=== PATIENT | female | born 1960 | race Caucasian/White ===

== ENCOUNTER 2022-10-18 03:16 | Observation (INO) | payer BC ==
[~2022-10-18] VITALS: Ht 167.6 cm; Wt 62.9 kg
[~2022-10-18 03:16] MED LIST: AUGMENTIN 875-1 EACH PO
[2022-10-18 03:42] LABS: BILIRUBIN, URINE NEGATIVE (negative); BLOOD/HGB, URINE TRACE-I (Negative); KETONE, URINE NEGATIVE (Negative); LEUK ESTERASE, URINE NEGATIVE (negative); NITRITE, URINE NEGATIVE (negative); PH, URINE 8.5 (5-7)
[2022-10-18 03:44] LABS: CRYSTALS, URINE AMORPHOUS PHOSPH 2+ (0-1+); EPITHELIAL CELLS, URINE SQUAMOUS 1+ /lpf (0-1+); REFLEX CULTURE, URINE No (No); WHITE BLOOD CELLS, URINE 0-1 /HPF (0-5)
[2022-10-18 03:57] LABS: BASOPHILS 0.4 % (0-2); HEMATOCRIT 35.8 % (35.0-50.0); HEMOGLOBIN 12.2 g/dL (12.0-18.0); LYMPHOCYTES 17.8 % (24-44); MCH 31.8 (27-36); MCV 93.4 fl (81-99); MONOCYTES 6.9 % (0-12); NEUTROPHILS 72.9 % (39-80); PLATELET COUNT 277 K/uL (140-440); RBC 3.83 M/ul (4.3-5.7); RDW 13.3 (10.5-15.0)
[2022-10-18 04:10] LABS: ALBUMIN 3.8 g/dL (3.4-5.0); ALBUMIN/GLOBULIN RATIO 0.93 (1.1-2.4); ANION GAP 13.7 (7-21); BILIRUBIN, TOTAL 0.6 ng/dL (0.2-1.0); BUN/CREATININE RATIO 13.43 (6.0-28.6); CALCIUM 9.6 mg/dL (8.5-10.1); CREATININE, SERUM 0.67 mg/dL (0.55-1.02); POTASSIUM 3.7 mmol/L (3.5-5.1); PROTEIN, TOTAL 7.9 g/dL (6.4-8.2)
[2022-10-18 06:34] LABS: INFLUENZA B NAA NEGATIVE (NEGATIVE); RESPIRATORY SYNCYTIAL VIR NAA NEGATIVE (NEGATIVE)
[2022-10-18 07:52] VITALS: BP 146/80
--- NOTE | 2022-10-18 08:05 | NUR ---
PATIENT TO MEDICAL FLOOR. PT IS ALERT AND ORIENTED X4. PATIENT REPORTS 5/10 ABDOMINAL PAIN WITH NAUSEA. PATIENT REPORTS HER PAIN AND NAUSEA ARE GETTING A BIT BETTER SINCE MEDICATION WAS ADMINISTERED. PATIENT ORIENTED TO ROOM AND CALL LIGHT.
--- NOTE | 2022-10-18 09:14 | NUR ---
SPOKE TO PT. ABOUT THE DISCHARGE PLAN.PATIENT WILL GO HOME TO HER [place]IL[place] WHERE SHE LIVES ALONE. PATIENT HAS A DAUGHTER THAT CHECKS ON HER FREQUENTLY. THE PATIENT CAN DO HER OWN ADLS AND IS ABLE TO DRIVE NEEDED. PATIENT DOES NOT USE DME. PATIENT IS ABLE TO CLIMB THE THE STEPS TO HER TRAILER WITHOUT DIFFICULTY.PATIENT CAN AFFORD FOOD AND HOUSING. PATIENT DOES NOT NEED PLACEMENT. PATIENT HAS FRIENDS AND FAMILY THAT CAN HELP NEEDED. PATIENT DOES NOT NEED CASE MANAGEMENT'S HELP AT THIS TIME. THE PATIENT'S DEMOGRAHICS ARE CORRECT IN THE MEDICAL RECORD.
--- NOTE | 2022-10-18 10:52 | NUR ---
RESPONDED TO CALL LIGHT AT ABOUT 1020 HOURS. PT IV ALARMING LOW BATTERY. IV PUMP PLUGGED BACK IN, SCD'S PLACED BILATERALLY AND TURNED ON. WARM BLANKET PROVIDED. BED REPOSITIONED AND BRAKES SET. CALL LIGHT IN REACH, DENIES OTHER NEEDS AT THIS TIME.
--- NOTE | 2022-10-18 11:41 | NUR ---
PT IN [facility]. TALKED OF [facility] AND HEALTH JOURNEY. CONSENTED TO PRAYER. PRAYED FOR SUCCESSFUL PROCEDURE AND GEORGE AND COMPLETE RECOVERY.
--- NOTE | 2022-10-18 11:50 | NUR ---
PT VISITORS ARRIVED, ESCORTED VISITORS TO PT'S ROOM. MECHANICAL SYSTEMS DESIGNER IN ROOM WITH PT. PT ADVISED SHE NEEDS TO URINATE. LINE AND TUBE MANAGEMENT, 1-PERSON SBA PT AMBULATED TO BATHROOM TO VOID. EMPTIED URINE COLLECTION HAT OF 800ML CLEAR YELLOW URINE PRIOR TO PT VOIDING, THEN EMPTIED IT OF ANOTHER 600ML CLEAR YELLOW URINE AFTER (BOTH WRITTEN ON DRY ERASE SHEET). PT AMBULATED BACK TO BED, IV PUMP PLUGGED IN, FAMILY IN ROOM, BEDSIDE TABLE NEARBY, CALL LIGHT IN REACH, SCD'S APPLIED AND TURNED ON. DENIES FURTHER NEEDS AT THIS TIME.
[2022-10-18 14:02] VITALS: BP 134/70
--- NOTE | 2022-10-18 15:19 | NUR ---
PATIENT LEFT THE MEDICAL FLOOR FOR SURGERY.
--- NOTE | 2022-10-18 17:08 | NUR ---
10/18/22 1708 Debbie Jiang 1647- PT ARRIVES TO PACU UNIT VIA STRETCHER FROM OR. PT IS NONAROUSABLE TO TACTILE STIMULI AT THIS TIME. ORAL AIRWAY IN PLACE W/10L OF O2 VIA MASK BEING DELIVERED. O2 >90% AT THIS TIME, RESPIRATIONS EVEN AND UNLABORED, NO SIGNS OF DISTRESS. JAW THRUST BEING HELD BY TY NÚÑEZ AT THIS TIME. SURGICAL SITES VISUALIZED. 1649- JAW THRUST NO LONGER NEEDED AT THIS TIME, HEAD REPOSITIONED. RESPIRATIONS EVEN AND UNLABORED, NO SIGNS OF DISTRESS. 1653- PT RESPONSIVE TO VERBAL STIMULI AT THIS TIME. ORAL AIRWAY REMOVED BY PT OPENING MOUTH AT THIS TIME. PT TITRATED TO 6L OF O2 VIA MASK, O2 REMAINS >90% AT THIS TIME. RESPIRATIONS EVEN AND UNLABORED, NO SIGNS OF DISTRESS. 1659- ROOM AIR TRIAL AT THIS TIME, PT TAKING DEEP BREATHS WITHOUT DIFFICULTIES. O2 >90% VIA CONT PULSE OX AT THIS TIME. 1703- LINCOLN ROACH AT BEDSIDE TO DISCUSS PROCEDURE W/PT. 1707- PT DROWSY AND DENIES NEED FOR DRINK OF WATER AT THIS TIME. PT EYES OCCASIONALLY OPENED AND RESPONDS TO VERBAL STIMULI AT THIS TIME. PT DENIES ANY PAIN OR NAUSEA. RESPIRATIONS EVEN AND UNLABORED, NO SIGNS OF DISTRESS.
--- NOTE | 2022-10-18 17:35 | NUR ---
Patient arrived back to the medical floor. Patient is awake, alert and oriented x4. Patient reports her pain is tolerable, 1/10 to abdomen. Patient denies nausea. Abdoment has x4 lap sites noted, steri strips in place-scant sarosang drainage noted. Patient's vital signs are stable, afebrile. Cont cpox in place, sp02 92% on room air, respirations even and non labored. IV site remain patent, fluids infusing per provider order. Patient denies needs. Bed alarm intact.
[2022-10-18 18:23] VITALS: BP 134/92
--- NOTE | 2022-10-18 18:35 | NUR ---
ZOFRAN 4MG IV ADMIN FOR REPORTS OF NAUSEA.
--- NOTE | 2022-10-18 18:55 | NUR ---
ADMIN MORPHINE 2MG IV FOR REPORTS OF 7/10 ABDOMINAL PAIN.
[2022-10-18 19:11] VITALS: BP 135/81
--- NOTE | 2022-10-18 19:42 | NUR ---
REPORT RECEIVED FROM DAY SHIFT RN. PT LYING IN BED ALERT AND ORIENTED. DENIES NEEDS. POST OP VS WNL. PT DENIES NEEDS. WHITE BOARD UPDATED. CALL LIGHT IN REACH.
[2022-10-18 20:25] VITALS: BP 136/62
--- NOTE | 2022-10-18 20:51 | NUR ---
POST OP VS WNL. EVENING ASSESSMENT COMPLETE. SCHEDULED MEDS ADMIN PER EMAR. PT DENIES PAIN OR NAUSEA. LAP SITES X [address] SCANT AMOUNT SEROSANG DRAINAGE NOTED. ABD SOFT. BOWEL TONES ACTIVE. PT REPORTS FLATUS. SCD'S IN PLACE. PT DENIES QUESTIONS OR CONCERNS. CALL LIGHT IN REACH.
--- NOTE | 2022-10-18 22:53 | NUR ---
IV ABX COMPLETE. PT UP TO BR WITH MINIMAL SBA TO VOID. GAIT STEADY. BACK TO BED, VIOLETA WELL. SCD'S IN PLACE. PRN FOR 3/10 ABD PAIN ADMIN WITH CRACKERS AND APPLE SAUCE. PT DENIES NAUSEA. NO FURTHER NEEDS. BED ALARM FOR SAFETY.
[2022-10-19 01:47] VITALS: BP 133/65
--- NOTE | 2022-10-19 02:12 | NUR ---
VS AND I&O OBTAINED. PT UP TO BR WITH MINIMAL ASSIST TO VOID. BACK TO BED, VIOLETA WELL. PT DENIES PAIN OR NAUSEA. LAP SITES X [address]. SCANT AMOUNT SEROSANG DRAINAGE. BOWEL TONES ACTIVE. PT REPORTS FLATUS. ABD SOFT. SCD'S IN PLACE. NO FURTHER NEEDS.
--- NOTE | 2022-10-19 04:01 | NUR ---
PT RESTING IN BED WITH EYES CLOSED. RESPIRATIONS EVEN. SpO2 95% ON RA. HR 60'S. CALL LIGHT IN REACH.
[2022-10-19 05:29] LABS: BASOPHILS 0.7 % (0-2); HEMATOCRIT 31.5 % (35.0-50.0); HEMOGLOBIN 10.5 g/dL (12.0-18.0); LYMPHOCYTES 10.4 % (24-44); MCH 31.7 (27-36); MCHC 33.5 g/dl (30-36); MCV 94.6 fl (81-99); MONOCYTES 6.7 % (0-12); NEUTROPHILS 82.2 % (39-80); PLATELET COUNT 224 K/uL (140-440); RBC 3.33 M/ul (4.3-5.7); RDW 13.5 (10.5-15.0)
[2022-10-19 05:39] VITALS: BP 114/59
--- NOTE | 2022-10-19 05:44 | NUR ---
PT RESTING IN BED. PT UP TO THE BATHROOM WITH A STEADY GAIT. TOLERATED WELL. VITAL SIGNS AND I's and O's TAKEN AND DOCUMENTED. PTS PAIN WAS RATED A 2/10 AND PAIN MEDICATION WAS GIVEN. PT STATES SHE IS READY FOR BREAKFAST. CALL LIGHT WITHIN REACH.
[2022-10-19 05:53] LABS: ALBUMIN/GLOBULIN RATIO 0.86 (1.1-2.4); ANION GAP 10.9 (7-21); BILIRUBIN, TOTAL 0.5 ng/dL (0.2-1.0); BUN/CREATININE RATIO 9.89 (6.0-28.6); CALCIUM 8.3 mg/dL (8.5-10.1); CREATININE, SERUM 0.91 mg/dL (0.55-1.02); MAGNESIUM 1.6 mg/dL (1.8-2.4); POTASSIUM 3.9 mmol/L (3.5-5.1); PROTEIN, TOTAL 6.5 g/dL (6.4-8.2)
--- NOTE | 2022-10-19 07:39 | NUR ---
RECIEVED SHIFT REPORT. PT RESTING IN BED AWAKE. CALL LIGHT IN REACH. DENIES FURTHER NEEDS AT TIME.
[2022-10-19] MEDS ORDERED: ACETAMINOPHEN500 MG PO (09:42)
[2022-10-19] MEDS ORDERED: OXYCODON-ACETA1 EAC2 PO (09:42)
[2022-10-19] MEDS ORDERED: IBUPROFEN600 MG PO (09:42)
[2022-10-19 10:15] VITALS: BP 133/63
--- NOTE | 2022-10-19 10:16 | NUR ---
IV TAKEN OUT UPON RN REQUEST. CATH INTACT AND LOOKED GOOD, RN NOTIFIED.
--- NOTE | 2022-10-19 11:12 | NUR ---
DISCHARGE INSTRUCTIONS DISCUSSED WITH PT AND DAUGHTER, WRITTEN INSTRUCTIONS PROVIDED. BOTH VERBALIZE UNDERSTANDING. PT LEAVES UNIT ABMULATORY WITH DAUGHTER.
--- NOTE | 2022-10-20 12:00 | HP ---
[facility] [address], [place] [address] Signed ADMISSION DATE: 10/18/2022 REASON FOR ADMISSION: Acute calculous cholecystitis. HISTORY OF PRESENT ILLNESS: This 61-year-old white woman is admitted to the hospital with acute calculous cholecystitis. She has been having upper abdominal pain for at least two years she tells me. She usually manages this with dietary manipulation, avoiding fatty food and so on. Last night about midnight, she had severe epigastric and right subcostal pain severe enough that she presented to the emergency room where she was evaluated by Dr. Boswell. Findings included marked tenderness in the right upper abdomen. Imaging study initially performed was a CT scan which showed a dilated gallbladder and some intrahepatic ductal dilatation of biliary tree. She had normal biliary function tests including a normal alkaline phosphatase of 74. Her white count was normal at 9.0. Other labs were normal as well. I was called about the situation and recommended a gallbladder ultrasound be performed to affirm that there were stones and not neoplastic process accounting for her symptoms. A gallbladder ultrasound did confirm at least one large gallstone and probably others. Thickening of the gallbladder was noted. Heller sign was positive. On the basis of these findings, she was admitted for acute calculous cholecystitis. PAST MEDICAL HISTORY: Notable for x3. She has no other medical problems and takes no medications at home. SOCIAL HISTORY: She lives alone with her four pets. She has three grown children who live elsewhere. 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 REVIEW OF SYSTEMS: She denies any shortness of breath or chest pain. Has had no dysphagia, dysuria, hematemesis or blood per rectum. PHYSICAL EXAMINATION: GENERAL: Pleasant white woman who looks to be in no severe distress and without systemic toxicity. She is 5 feet 6 inches tall, 62.9 kg with a BMI of 22.4. HEENT: Trachea is midline. Mucous membranes are slightly dry. Electronically Signed By: HELEN STARK MD 10/20/22 1200 PATIENT NAME: DIANE NOVAK HISTORY AND PHYSICAL DATE OF : 60 REPORT #: [id number] PHYSICIAN: HELEN STARK MD PCP: RUSSELL PINEDA MD REPORT IS CONFIDENTIAL AND NOT TO BE RELEASED WITHOUT AUTHORIZATION [facility] [address], [place] [address] Signed CHEST: Shows normal respiratory excursion. HEART: Pulses regular. ABDOMEN: Nondistended. She has marked tenderness in the epigastric and right subcostal area. There is no ascites. There is no palpable mass. EXTREMITIES: Show no clubbing, cyanosis, or edema. LABORATORY STUDIES: Show a white count of 8.0, hematocrit 35.8, platelets 277,000. Chem profile is essentially normal. Glucose 122, globulin 4.1, lipase 142. Urinalysis is negative. Serology shows no evidence of COVID disease or other viral infection. I have reviewed the imaging of her CT scan and her ultrasound. She clearly has a distended gallbladder and there does appear to be some intrahepatic ductal dilatation. There is no sign of neoplasm of the head of the pancreas. ASSESSMENT: The patient has acute calculous cholecystitis. She has been building these symptoms for quite some time overall. I discussed with her the pathophysiology of this problem writing and illustrating this on her white board in her room. I would recommend continued fluid resuscitation, IV antibiotic therapy, parental pain medication, and plan for cholecystectomy later today. Cholangiogram would be performed as well. If there is stone debris within the bile duct accounting for ductal dilatation in a transcystic duct. Laparoscopic common duct exploration would be considered as well. If this is not possible and there is obstructing stone material, consideration for open cholecystectomy and common duct exploration would also be made. She understands this clearly. MD LUZ Pedraza/IOANA /[id number] cc: Dr. Boswell [facility], ER Electronically Signed By: HELEN STARK MD 10/20/22 1200 PATIENT NAME: DIANE NOVAK HISTORY AND PHYSICAL DATE OF : 60 REPORT #: [id number] PHYSICIAN: HELEN STARK MD PCP: RUSSELL PINEDA MD REPORT IS CONFIDENTIAL AND NOT TO BE RELEASED WITHOUT AUTHORIZATION [facility] [address], [place] [address] Signed Copies: ~ Electronically Signed By: HELEN STARK MD 10/20/22 1200 PATIENT NAME: DIANE NOVAK ANN HISTORY AND PHYSICAL DATE OF : 60 REPORT #: [id number] PHYSICIAN: HELEN STARK MD PCP: RUSSELL PINEDA MD REPORT IS CONFIDENTIAL AND NOT TO BE RELEASED WITHOUT AUTHORIZATION
--- NOTE | 2022-10-21 12:35 | PATH ---
[facility] [address], [place] [address] Signed SPECIMEN(S): A GALLBLADDER WITH STONES SPECIMEN SOURCE: A. GALLBLADDER WITH STONES CLINICAL HISTORY: Acute cholecystitis. Cholelithiasis. FINAL PATHOLOGIC DIAGNOSIS: Gallbladder with stones: - Chronic calculus cholecystitis. JVR:marlene MICROSCOPIC EXAMINATION: Histologic sections of all submitted blocks are examined by light microscopy. These findings, together with the gross examination, support the pathologic diagnosis. GROSS DESCRIPTION: The specimen, labeled and designated "Jillian Donovan " and designated on the requisition "gallbladder with stone," is received in formalin and consists of Specimen: Previously opened gallbladder. Dimensions: 7.5 x 5.7 x 2.0 cm. Serosa: Yellow-guardado and smooth. Cystic Duct: Unobstructed, margin inked black and shaved. Calculi: White-guardado bosselated and irregularly shaped calculi (2.0 x 1.8 x 1.8 cm and 2.4 x 2.0 x 2.0 cm).. Mucosa: Green and velvety. Wall thickness: 0.4 cm. Lymph node: No pericystic lymph nodes are grossly identified. Additional: None. Assistant Merchandiser sections are submitted in (A1). AC (under the direct supervision of a pathologist) The Gross Description was prepared using a voice recognition system. The report was reviewed for accuracy; however, sound-alike word errors, addition and/or deletions may occur. If there is any question about this report, please contact Client Services. PERFORMING LABORATORY: Technical component was performed by [facility], [address] [place] [id number] (CLIA# [id number]). Professional interpretation was PATIENT NAME: DIANE DONOVAN PATHOLOGY DATE OF : 60 REPORT #: [id number] PHYSICIAN: CANDI PATHOLOGY PCP: RUSSELL PINEDA MD REPORT IS CONFIDENTIAL AND NOT TO BE RELEASED WITHOUT AUTHORIZATION [facility] [address], [place] [address] Signed performed by [facility] [address] [address] (CLIA#: [id number]). Diagnostician: Phillip Mireles MD Pathologist Electronically Signed 10/21/2022 Copies: ~ PATIENT NAME: DIANE DONOVAN PATHOLOGY DATE OF : 60 REPORT #: [id number] PHYSICIAN: CANDI PATHOLOGY PCP: RUSSELL PINEDA MD REPORT IS CONFIDENTIAL AND NOT TO BE RELEASED WITHOUT AUTHORIZATION
--- NOTE | 2022-10-30 11:13 | OR ---
[facility] [address] [place], [place] [address] Signed DATE OF OPERATION: 10/18/2022 SURGEON: Helen Stark MD PREOPERATIVE DIAGNOSES: 1. Acute calculous cholecystitis. 2. Dilated common bile duct. POSTOPERATIVE DIAGNOSES: 1. Acute calculous cholecystitis. 2. Dilated common bile duct. 3. No associated obstruction of duct or stone and duct. PROCEDURE: Laparoscopic cholecystectomy with intraoperative cholangiogram and surgeon-directed fluoroscopy. ANESTHESIA: General endotracheal, Helen Shine CRNA and local 10 mL of 0.25% Marcaine with epinephrine. INDICATION: This 61-year-old white woman was admitted to the hospital with findings consistent with acute cholecystitis. Gallbladder ultrasound confirms stones and the dilated gallbladder. She is admitted at this time to undergo cholecystectomy. She understands the risk of bleeding, infection, bile duct injury, need for open procedure, and need for common duct exploration. FINDINGS: The gallbladder was somewhat dysmorphic in its position. There were adhesions to the liver medially more so than usual. The dilated common bile duct was noted, but cholangiogram showed no sign of filling defect, impediment to flow of bile into the duodenum. The gallbladder did confirm stones. DESCRIPTION OF PROCEDURE: The patient was brought to the operating room, given a general endotracheal anesthetic. Preoperative antibiotic Ancef was given. Sequential compression device stockings were used and heparin subcutaneously administered. The abdomen was prepared with chlorhexidine solution and draped sterilely. Infraumbilical incision was made and using an open Carrol cannula technique, the abdomen was entered and pneumoperitoneum achieved Electronically Signed By: HELEN STARK MD 10/30/22 1113 PATIENT NAME: DIANE NOVAK OPERATIVE REPORT DATE OF : 60 REPORT #: [id number] PHYSICIAN: HELEN STARK MD PCP: FRANCE PINEDA MD REPORT IS CONFIDENTIAL AND NOT TO BE RELEASED WITHOUT AUTHORIZATION [facility] [address] [place], [place] [address] Signed to a level of 14 mmHg of carbon dioxide gas. Intra-abdominal inspection showed no sign of ascites or carcinomatosis. The liver appeared normal. The gallbladder was obscured with omental adhesions initially. Three additional trocars were placed in usual configuration in the subxiphoid, right midclavicular, and right anterior axillary line. The gallbladder was noted to be quite markedly distended. Decompression was undertaken of the gallbladder to allow it to be grasped. It was noted to be medially deviated towards the falciform ligament. Adhesions to the liver were noted. Gentle retraction on the gallbladder did allow for some tearing of the attachments of the gallbladder medially to the liver. Bleeding was ultimately better characterized and secured with electrocautery and application of clips upon a top-down dissection of the gallbladder in the medial aspect. Resumption of dissection was undertaken allowing for careful dissection of the triangle of Calot. Cystic duct was relatively small. A clip was applied across the gallbladder cystic duct junction and transverse choledochotomy was made in the cystic duct. Intraoperative cholangiography showed a somewhat dilated duct with passage of contrast into the duodenum. There was no sign of filling defect, though the biliary tree was somewhat dilated. The gallbladder entered the cystic duct from the medial side it is noted. Proximal filling of biliary tree showed it to be normal. The gallbladder was then dissected free from the liver bed and the cystic duct triply clipped and divided. The gallbladder was extracted through the infraumbilical port site with an endobag and opened on the back table and found to have both large and small stones. Irrigation was undertaken of the subhepatic space. Application of Adonis hemostatic agent to the subhepatic space was also accomplished. The trocars were removed under direct visualization showing no sign of bleeding. The infraumbilical fascial incision was reapproximated with interrupted 0 Vicryl suture. Irrigation was undertaken and local anesthetic 0.25% Marcaine with epinephrine was injected locally. Steri-Strips were applied. The patient was ultimately extubated and transferred to the recovery room in good condition having suffered no complications. Sponge, needle, and instrument counts reported as correct x3. MD LUZ Pedraza/MODL /[id number] cc: France Pineda MD Electronically Signed By: HELEN STARK MD 10/30/22 1113 PATIENT NAME: DIANE NOVAK OPERATIVE REPORT DATE OF : 60 REPORT #: [id number] PHYSICIAN: HELEN STARK MD PCP: FRANCE PINEDA MD REPORT IS CONFIDENTIAL AND NOT TO BE RELEASED WITHOUT AUTHORIZATION [address] [address] Signed Copies: ~ Electronically Signed By: HELEN STARK MD 10/30/22 1113 PATIENT NAME: DIANE NOVAK ANN OPERATIVE REPORT DATE OF : 60 REPORT #: [id number] PHYSICIAN: HELEN STARK MD PCP: FRANCE PINEDA MD REPORT IS CONFIDENTIAL AND NOT TO BE RELEASED WITHOUT AUTHORIZATION
== END 2022-10-19 11:12 | disposition home or self-care (01) ==
LOC: ED 03:16 → MS 03:19
PROVIDERS: Family Medicine; ADMIT Surgery; ATTEND Surgery
PROC: 0FT44ZZ Resection of Gallbladder, Percutaneous Endoscopic Approach (ICD-10-PCS; principal; 2022-10-18 15:00)
DX: K80.12 Calculus of gallbladder with acute and chronic cholecystitis without obstruction (principal)
CPT/HCPCS: 00790; 36415; 74177; 74300; 76705; 80053; 81001; 83690; 83735; 85025; 87502; 96361; 96372; 96375; 96376; 99285-25; G0378; J0330; J0690; J1100; J1644; J1885; J2250; J2270; J2405; J2704; J2765; J3010; J7030; J7121; Q9967; U0002